=== PATIENT | male | born 1985 | race Two or more races ===

== ENCOUNTER 2023-11-16 19:24 | Emergency (ER) | payer OTHER ==
[~2023-11-16] VITALS: Ht 177.8 cm; Wt 113.6 kg
[2023-11-16 20:03] VITALS: TEMP 97.9
[2023-11-16] MEDS: IBUPROFEN 600 MG TABLET PO ONE (20:36)
[2023-11-16] MEDS: ACETAMINOPHEN/CODEINE 300-30 MG TABLET PO ONE (20:36)
[2023-11-16 22:33] VITALS: BP 135/98; PULSE 62; RESP 16
== END 2023-11-16 22:35 | disposition home or self-care (01) ==
LOC: EMS 19:24
DX: S60.221A Contusion of right hand, initial encounter (principal); S50.11XA Contusion of right forearm, initial encounter; S20.211A Contusion of right front wall of thorax, initial encounter; X58.XXXA Exposure to other specified factors, initial encounter; Y93.89 Activity, other specified; Y92.89 Other specified places as the place of occurrence of the external cause; Y99.8 Other external cause status
CPT/HCPCS: 70450; 70486; 71111; 99284